=== PATIENT | female | born 1995 | race Caucasian/White ===

== ENCOUNTER → 2018-02-01 14:42 | Outpatient (CLI) | payer OTHER, SELFPAY ==
[2018-02-01 16:00] LABS: Hematocrit 29.8 % (36-46); Hemoglobin 10.1 g/dL (12.0-16.0)
[2018-02-01 16:29] LABS: GTT (PREG) 1 Hour PP 50gm Dose 136 mg/dL (76-139)
== END ==
PROVIDERS: PCP Family Medicine; Visit Provider Family Medicine
DX: Z3A.26 26 weeks gestation of pregnancy (principal)
CPT/HCPCS: 36415; 82950; 85014; 85018

== ENCOUNTER 2018-02-03 21:25 | Emergency (ER) | payer OTHER, MEDICAID, SELFPAY ==
[2018-02-03 21:27] VITALS: BP 109/67; PULSE 101; RESP 18; TEMP 36.3; O2SAT 99; BMI 25.6
[2018-02-03] MEDS: SODIUM CHLORIDE 0.9% 1,000 ML 1000 ML IV (22:42)
[2018-02-03] MEDS: METOCLOPRAMIDE 10 MG/2 ML INJ IV (22:42)
[2018-02-03 23:57] VITALS: BP 104/65; PULSE 98; RESP 18; TEMP 36.7; O2SAT 98
--- NOTE | 2018-02-04 00:46 | ED_ITS ---
HPI - Headache General Chief Complaint: Headache Stated Complaint: BAD HEADACHE LOW IRON Time Seen by Provider: 02/03/18 21:42 Source: patient Mode of arrival: ambulatory Limitations: no limitations History of Present Illness HPI Narrative: 22-year-old female with history of migraines, at 22 weeks presents with a chief complaint of gradually worsening frontal headache over the past day or 2. she states that is presenting in a fashion consistent with prior migraines. She denies any visual disturbance. She admits to worsening symptoms with bright lights, loud noise and physical exertion. She denies any fever or chills. She denies any recent injury. She has no history of preeclampsia or other related problems MD Complaint: headache Onset (ago): day(s) Onset description: gradual Location: left and frontal Severity: moderate Quality: aching and similar to previous headaches Relieving factors: nothing Exacerbating factors: light and rest Context: occurred at rest Associated symptoms: nausea Related Data Previous Rx's Medication Instructions Recorded ferrous sulfate 325 mg (65 mg 325 mg PO DAILY #90 tab 01/23/18 iron) tablet 1 tab PO DAILY #90 tab 01/23/18 vitamin,calcium,sxnmmfzc-kznq-jgqqd acid tablet sertraline 100 mg tablet 100 mg PO DAILY #30 tab 01/23/18 Allergies Allergy/AdvReac Type Severity Reaction Status Date / Time diphenhydramine Allergy Severe shortness Verified 01/23/18 10:34 [From Benadryl] of breath Penicillins AdvReac Mild hives Verified 01/23/18 10:34 Review of Systems Review of Systems All systems reviewed & are unremarkable except as noted in HPI and below Constitutional Denies chills, Denies fever(s), Reports headache(s), Denies lethargy and Denies weakness Eyes Denies change in vision, Denies eye discharge, Denies irritation and Denies loss of vision ENT Ears, Nose, Mouth, and Throat: Denies change in voice, Reports headache(s), Denies neck pain and Denies sore throat Cardiovascular Denies chest pain, Denies irregular heart rhythm, Denies lightheadedness, Denies palpitations, Denies dyspnea, Denies dyspnea on exertion and Denies orthopnea Respiratory Denies cough, Denies dyspnea, Denies dyspnea on exertion and Denies wheezing Gastrointestinal Gastrointestinal: Denies abdominal pain, Denies change in bowel habits, Denies diarrhea, Denies nausea and Denies vomiting Genitourinary Denies hematuria, Denies flank pain, Denies urinary incontinence and Denies urinary urgency Musculoskeletal Denies neck pain Integumentary/Breasts Denies pruritus, Denies erythema, Denies rash and Denies wounds Neurologic Denies confusion, Reports headache(s), Denies loss of vision and Denies weakness Psychiatric Denies anxiety, Denies confusion, Denies depression, Denies homicidal ideation and Denies suicidal ideation Endocrine Denies palpitations Hematologic/Lymphatic Denies easy bruising Allergic/Immunologic Denies wheezing [facility] Medical History Anxiety and depression (Chronic) Migraines (Chronic) Traumatic brain injury (Resolved) Surgical History H/O sinus surgery (Resolved) S/P tonsillectomy (Resolved) Social History marital status: number of children: 1 household members: family lives independently: Yes education level: college occupational status: unemployed () Smoking Status: Never smoker alcohol intake: current () substance use type: does not use Exam Narrative Exam Narrative: GENERAL: This is a well-nourished, well-developed patient, in mild distress. HEAD: Atraumatic. Normocephalic. No temporal or scalp tenderness. EYES: Pupils equal round and reactive. Extraocular motions intact. No scleral icterus. No injection or drainage. ENT: Nose without bleeding, purulent drainage or septal hematoma. Throat without erythema, tonsillar hypertrophy or exudate. Uvula midline. Airway patent. NECK: Trachea midline. No JVD or lymphadenopathy. Supple, nontender, no meningeal signs. CARDIOVASCULAR: Regular rate and rhythm without murmurs, gallops, or rubs. RESPIRATORY: Clear to auscultation. Breath sounds equal bilaterally. No wheezes , rales, or rhonchi. GASTROINTESTINAL: Abdomen soft, gravid above umbilicus non-tender, nondistended. No hepato-splenomegaly, or palpable masses. No guarding. EXTREMITIES: No clubbing, cyanosis, or edema. No joint tenderness, effusion, or edema noted. BACK: Nontender without deformity or crepitance. No flank tenderness. NEURO: AOx3. SKIN: No rash or erythema. Initial Vital Signs Initial Vital Signs: Vital Signs Temperature 97.4 F L 02/03/18 21:27 Pulse Rate 101 H 02/03/18 21:27 Respiratory Rate 18 02/03/18 21:27 Blood Pressure 109/67 02/03/18 21:27 Pulse Oximetry 99 02/03/18 21:27 Course Orders Ordered: Discontinued Medications Sodium Chloride (Normal Saline 0.9%) 1,000 mls @ 1,000 mls/hr IV BOLUS ONE Stop: 02/03/18 23:26 Last Infusion: 02/03/18 23:55 Dose: 0 mls/hr Admin: 02/03/18 22:42 Dose: 1,000 mls/hr Metoclopramide HCl (Reglan) 10 mg IV NOW ONE Stop: 02/03/18 22:28 Last Admin: 02/03/18 22:42 Dose: 10 mg Reevaluation(s) Reevaluation #1: near complete resolution of symptoms upon completion of above stated therapies Vital Signs - 8 hr 02/03/18 21:27 02/03/18 23:57 Temperature 97.4 F L 98.1 F Pulse Rate 101 H 98 H Respiratory Rate 18 18 Blood Pressure 109/67 104/65 Pulse Oximetry 99 98 MDM - Headache Lab Data Urine Dip Bedside Urine Glucose Negative Bedside Urine Bilirubin - Negative Bedside Urine Ketone - Negative Urine Specific [place] 1.015 Bedside Urine Occult Blood - Negative Bedside Urine pH 7.5 Bedside Urine Protein - Negative Bedside Urine Urobilinogen - Negative Bedside Urine Nitrite - Negative Bedside Urine Leukocytes - Negative Esterase MDM Narrative Medical decision making narrative: Diagnoses including migraine, SAH, preeclampsia considered subarachnoid hemorrhage is less likely given gradual presentation of symptoms lack of vomiting lack of other focal neurologic findings and response to the above-stated therapies. preeclampsia ruled with lack of hypertension and or proteinuria migraine thought most likely given comparison to prior episodes of migraine, physical exam findings, resolution of symptoms with migraine abortive med therapy Discharge Plan Departure Patient Disposition: Home Clinical Impression: Migraine Discharge Date/Time: 02/03/18 23:58 Interventions: ED Discharge Assessment Last Done: 02/03/18 23:57 Instructions: Migraine -- Adult Activity Restrictions/Additional Instructions: *You have been diagnosed with [ acute migraine ] *What to do: *Continue to take medications as directed *Follow up with your primary care provider in 2-3 days, call for an appointment. Let them know you were seen in the Emergency Department and that we ask that you be seen in follow up *Return to ER if you should have any new, worsening or concerning symptoms Prescriptions: No Action prenat.vits,kate,bwr-yzgn-edort [ Vitamin] tablet 1 tab PO DAILY Qty: 90 RF: 0 ferrous sulfate [FeroSul] 325 mg (65 mg iron) tablet 325 mg PO DAILY Qty: 90 RF: 0 sertraline 100 mg tablet 100 mg PO DAILY Qty: 30 RF: 1
== END 2018-02-03 23:58 | disposition home or self-care (01) ==
PROVIDERS: Emergency Provider Emergency Medicine; PCP Family Medicine
DX: G43.909 Migraine, unspecified, not intractable, without status migrainosus (principal)
CPT/HCPCS: 36591; 81003; 96361; 96374; 99283; 99284; J2765

== ENCOUNTER → 2018-02-23 13:58 | Outpatient (CLI) | payer OTHER, MEDICAID, SELFPAY ==
--- NOTE | 2018-02-23 | DI.US.S_ITS ---
PROCEDURE: US OB LIMITED INDICATIONS: CONTRACTIONS, CERVICAL LENGTH OUTSIDE/PRIOR DATING DATA: Last menstrual period (LMP): Not available. LMP-based estimated date of delivery (ANGEL LUIS): Not available. First dating scan (date and location): This study, 02/23/18. Estimated date of delivery (ANGEL LUIS) from first dating scan: Not available. TECHNIQUE: Real-time scanning was performed of the fetus, with image documentation. Endovaginal scanning: Not necessary for this study COMPARISON: None. FINDINGS: A single living intrauterine gestation is present. Presentation: Breech Placenta: Placental position is anterior, without previa. Amniotic fluid index: 17.1 cm, normal range is 5-24 cm. heart rate: 140 beats per minute. Maternal cervical canal: 3.8 cm long. Normal lower limit is 2.5 cm. Estimated gestational age from initial scan: 30 weeks 3 days. IMPRESSION: Limited study requested, targeted to cervical length. Current cervical length is 3.8 cm, normal. Breech presentation at this time. Dictated by: Ty Teague M.D. on 02/23/2018 at 16:21 Approved by: Ty Teague M.D. on 02/23/2018 at 16:22
[2018-02-23 14:55] LABS: Add Manual Diff / Slide Review NO; Basophils Percent Auto 0.5 % (0-2); Eosinophils Percent Auto 1.2 % (2-4); Hematocrit 33.7 % (36-46); Hemoglobin 11.2 g/dL (12.0-16.0); Lymphocytes Percent Auto 19.8 % (25-40); Mean Corpuscular HGB Conc 33.4 % (30-36); Mean Corpuscular Hemoglobin 28.8 PG (26-34); Mean Corpuscular Volume 86.4 fL (80-100); Monocytes Percent Auto 6.7 % (3-14); Neutrophils Absolute Auto 6900 /uL (3000-5900); Neutrophils Percent Auto 71.8 % (50-75); Platelet Count 136 X10^3/uL (150-400); Red Cell Distribution Width 19.5 % (11.6-14.8); White Blood Cell Count 9.7 X10^3/uL (4.5-11.0)
[2018-02-23 15:04] LABS: Bacteria Urine None Seen; RBC Urine None Seen (0-5/HPF); WBC Urine None Seen (0-5/HPF)
[2018-02-23 15:05] LABS: Appearance Urine UA CLEAR; Bilirubin Urine UA NEGATIVE (NEGATIVE); Color Urine UA YELLOW; Glucose Urine UA NEGATIVE (Normal); Ketones Urine UA TRACE (NEGATIVE); Leukocyte Esterase Urine UA NEGATIVE (NEGATIVE); Nitrite Urine UA NEGATIVE (Negative); Occult Blood Urine UA NEGATIVE (Negative); Protein Urine UA TRACE (Negative); Urobilinogen Urine UA 0.2 E.U./dL (0.2)
--- NOTE | 2018-02-23 15:39 | PM.OBTRLD ---
Visit Information Visit Information Date of evaluation: 02/23/18 Primary OB Provider: Yenifer Mejia Reason for Evaluation: Yes pre-term labor PFSH Medical History Anxiety and depression (Chronic) Migraines (Chronic) Traumatic brain injury (Resolved) Surgical History H/O sinus surgery (Resolved) S/P tonsillectomy (Resolved) Social History marital status: number of children: 1 household members: family lives independently: Yes education level: college occupational status: unemployed () Smoking Status: Never smoker alcohol intake: current () substance use type: does not use Objective Labs Result Diagrams: 02/23/18 14:48 Labs: Laboratory Results - last 24 hr 02/23/18 02/23/18 14:48 14:50 WBC 9.7 RBC 3.90 L Hgb 11.2 L Hct 33.7 L MCV 86.4 MCH 28.8 MCHC 33.4 RDW 19.5 H Plt Count 136 L Neut % (Auto) 71.8 Lymph % (Auto) 19.[address] [place] % (Auto) 6.7 Eos % (Auto) 1.2 L Baso % (Auto) 0.5 Neut # (Auto) 6900 H Urine Color Yellow Urine Appearance Clear Urine pH 6.0 Ur Specific [place] 1.020 Urine Protein Trace H Urine Glucose (UA) Negative Urine Ketones Trace H Urine Occult Blood Negative Urine Nitrate Negative Urine Bilirubin Negative Urine Urobilinogen 0.2 Ur Leukocyte Esterase Negative Urine RBC None seen Urine WBC None seen Urine Bacteria None seen Ur Culture Indicated? Not Reportable Micro UA Comment Not Reportable Evaluation Evaluation Baseline heart rate: 130 Variability: Moderate (11-25) monitor accelerations: Present monitor decelerations: Absent Contraction Frequency (minutes): 0 Category of Tracing: I Laboratory results: Laboratory Tests 02/23/18 02/23/18 14:48 14:50 WBC 9.7 RBC 3.90 L Hgb 11.2 L Hct 33.7 L MCV 86.4 MCH 28.8 MCHC 33.4 RDW 19.5 H Plt Count 136 L Neut % (Auto) 71.8 Lymph % (Auto) 19.[address] [place] % (Auto) 6.7 Eos % (Auto) 1.2 L Baso % (Auto) 0.5 Neut # (Auto) 6900 H Urine Color Yellow Urine Appearance Clear Urine pH 6.0 Ur Specific [place] 1.020 Urine Protein Trace H Urine Glucose (UA) Negative Urine Ketones Trace H Urine Occult Blood Negative Urine Nitrate Negative Urine Bilirubin Negative Urine Urobilinogen 0.2 Ur Leukocyte Esterase Negative Urine RBC None seen Urine WBC None seen Urine Bacteria None seen Ur Culture Indicated? Not Reportable Micro UA Comment Not Reportable Diagnosis, Plan/Disposition Final Diagnosis (1) 30 weeks gestation of : Current Visit: Yes Status: Acute Plan/Disposition Plan: Patient came into the center today concerned about contractions and possible leaking of fluid. On the monitor patient was not sindhu. heart tones were reassuring. AmniSure was negative. Urine dip was negative for infection. Ultrasound done for cervical length revealed a cervix greater than 3 cm in length. Patient was reassured with this information. She will follow up next week in clinic as scheduled.
== END | disposition home or self-care (01) ==
LOC: LABOR 16:44 → OB 02-27 08:00
PROVIDERS: PCP Family Medicine
DX: Z34.83 Encounter for supervision of other normal pregnancy, third trimester (principal); Z3A.30 30 weeks gestation of pregnancy
CPT/HCPCS: 36415; 59025; 59050; 76811; 76815; 76817; 76830; 81001; 84112; 85025; G0378; G0379

== ENCOUNTER → 2018-03-14 11:50 | Outpatient (CLI) | payer OTHER, MEDICAID, SELFPAY ==
[2018-03-14 13:32] LABS: Urine N gonorrhoeae NOT DETECTED
[2018-03-14 13:38] LABS: Urine Chlamydia NOT DETECTED
== END ==
PROVIDERS: PCP Family Medicine; Visit Provider Family Medicine
DX: Z11.3 Encounter for screening for infections with a predominantly sexual mode of transmission (principal); Z11.8 Encounter for screening for other infectious and parasitic diseases; Z3A.33 33 weeks gestation of pregnancy; N89.9 Noninflammatory disorder of vagina, unspecified; O26.899 Other specified pregnancy related conditions, unspecified trimester
CPT/HCPCS: 87210; 87491; 87591

== ENCOUNTER → 2018-04-04 11:40 | Outpatient (CLI) | payer OTHER, MEDICAID, SELFPAY ==
[2018-04-05 15:04] LABS: Strep Grp B PCR NEG for Grp B Strep
== END ==
PROVIDERS: PCP Family Medicine; Visit Provider Family Medicine
DX: Z3A.36 36 weeks gestation of pregnancy (principal)
CPT/HCPCS: 87653

== ENCOUNTER 2018-04-28 00:14 | Outpatient (CLI) | payer OTHER, MEDICAID, SELFPAY ==
--- NOTE | 2018-04-28 10:19 | PM.OBTRLD ---
Visit Information Visit Information Date of evaluation: 04/28/18 Primary OB Provider: Yenifer Mejia On-call OB Provider: Bre Walden Reason for Evaluation: Yes rule out labor Vital Signs Vital Signs: Blood pressure 109/61 PFSH Social History marital status: number of children: 1 household members: family lives independently: Yes education level: college occupational status: unemployed () Smoking Status: Never smoker alcohol intake: current () substance use type: does not use Evaluation Evaluation Baseline heart rate: 130 Variability: Moderate (11-25) monitor accelerations: Present monitor decelerations: Absent Contraction Frequency (minutes): 7 Uterine Contraction Intensity: Moderate Category of Tracing: I Cervical dilation (cm): 2 Cervical effacement (%): 80 station: -1 Diagnosis, Plan/Disposition Final Diagnosis (1) 39 weeks gestation of : Current Visit: No Status: Acute (2) Premature uterine contractions, antepartum: Current Visit: No Status: Acute Plan/Disposition Plan: Patient in prodromal labor. She was discharged home to return if her contractions increase.
== END 2018-04-28 01:05 | disposition home or self-care (01) ==
LOC: LABOR 00:22 → OB 05-02 13:12
PROVIDERS: PCP Family Medicine; Visit Provider Specialist
DX: Z34.83 Encounter for supervision of other normal pregnancy, third trimester (principal); Z3A.39 39 weeks gestation of pregnancy
CPT/HCPCS: 59025; G0378; G0379

== ENCOUNTER 2018-04-30 05:07 | Outpatient (CLI) | payer OTHER, MEDICAID, SELFPAY ==
[2018-04-30] MEDS: OXYCODONE/ACETAMINOPHEN 5/325 TABLET 2 TAB PO (06:21)
[2018-04-30] MEDS: ONDANSETRON 4 MG ODT PO (06:21)
--- NOTE | 2018-04-30 10:27 | PM.OBTRLD ---
Visit Information Visit Information Date of evaluation: 04/30/18 Primary OB Provider: Yenifer Mejia On-call OB Provider: Bre Walden Reason for Evaluation: Yes rule out labor Vital Signs Vital Signs: Blood pressure 115/69, pulse of 86 PFSH Social History marital status: number of children: 1 household members: family lives independently: Yes education level: college occupational status: unemployed () Smoking Status: Never smoker alcohol intake: current () substance use type: does not use Review of Systems Review of Systems Patient complaining contractions, back pain, and nausea. no signs or symptoms of preeclampsia All systems reviewed & are unremarkable except as noted in HPI and below Evaluation Evaluation Baseline heart rate: 130 Variability: Moderate (11-25) monitor accelerations: Present monitor decelerations: Absent Contraction Frequency (minutes): 7 Uterine Contraction Intensity: Mild Category of Tracing: I Cervical dilation (cm): 2 Cervical effacement (%): 80 Diagnosis, Plan/Disposition Final Diagnosis (1) Premature uterine contractions, antepartum: Current Visit: No Status: Acute (2) 39 weeks gestation of : Current Visit: No Status: Acute Plan/Disposition Plan: Patient with no change in her cervix with very uncomfortable. Patient given Zofran and Percocet. Home to return if contractions increase
== END 2018-04-30 06:39 | disposition home or self-care (01) ==
LOC: OB 05-02 13:13
PROVIDERS: PCP Family Medicine; Visit Provider Specialist
DX: O47.1 False labor at or after 37 completed weeks of gestation (principal); Z3A.39 39 weeks gestation of pregnancy
CPT/HCPCS: 59025; G0378; G0379

== ENCOUNTER 2018-05-04 18:29 | Inpatient (IN) | payer OTHER, MEDICAID, SELFPAY ==
[2018-05-04 22:18] LABS: Add Manual Diff / Slide Review NO; Basophils Percent Auto 0.4 % (0-2); Eosinophils Percent Auto 0.8 % (2-4); Hematocrit 38.8 % (36-46); Hemoglobin 12.8 g/dL (12.0-16.0); Lymphocytes Percent Auto 20.2 % (25-40); Mean Corpuscular HGB Conc 33.1 % (30-36); Mean Corpuscular Hemoglobin 29.6 PG (26-34); Mean Corpuscular Volume 89.5 fL (80-100); Monocytes Percent Auto 8.1 % (3-14); Neutrophils Absolute Auto 8600 /uL (1500-7000); Neutrophils Percent Auto 70.5 % (50-75); Platelet Count 138 X10^3/uL (150-400); Red Blood Cell Count 4.34 X10^6/uL (4.0-5.2); Red Cell Distribution Width 16.1 % (11.6-14.8); White Blood Cell Count 12.2 X10^3/uL (4.5-11.0)
[2018-05-05] MEDS: LACTATED RINGERS 1,000 ML 100 ML IV ×2 (01:25→06:18)
[2018-05-05 01:39] VITALS: BP 114/62
[2018-05-05] MEDS: ONDANSETRON 4 MG/2 ML INJ IV (05:58)
--- NOTE | 2018-05-05 07:20 | P.HPOB_ITS ---
OB HPI Date/Time Date of admission: 05/04/18 Date Patient Seen: 05/05/18 Time Patient Seen: 07:40 History of Present Condition Chief complaint: Observation : 2 Para: 1 Estimated Date of Delivery: 05/01/18 Estimated Gestational Age (weeks): 40w4d Narrative: Ciara Best is a 22 year old at 40w4d weeks. Transfer of care at 26 weeks from [place]. Moved to get away from her , is currently going through a divorce. Lives in [place] with her mother and son. LMP 07/25/17, ANGEL LUIS 05/01/18 confirmed by 1st trimester US 10/06/17 at 10.3 weeks. US 12/14/17 at 20.2 weeks with normal anatomy, anterior placenta with marginal cord insertion. History of Present care: good care and pounds weight gain (24 lbs) Dating criteria: LMP confirmed by 1st trimester US Ultrasounds: normal mid trimester US Obstetrical complications: none Medical complications: none and psychiatric (Anxiety) Preadmission Labs Blood type: O (+) positive -: Antibody screen: negative, GBS status: negative, HBsAG: negative and RPR/VDLR : negative -: Chlamydia screen: not detected and Gonorrhea screen: not detected -: Rubella: not immune and Varicella: unknown (had chicken pox as a child) HCT: 31.4 Urine: Negative 1 hr GTT: 136 Prior (ies) History: August 2016 at 39+2 weeks, epidural, 6 lb male Evaluation Evaluation Baseline heart rate: 120 Variability: Moderate (11-25) monitor accelerations: Present monitor decelerations: Variable Contraction Frequency (minutes): 3 Category of Tracing: I Cervical dilation (cm): 5 Cervical effacement (%): 80 station: -1 Laboratory results: Laboratory Tests 05/04/18 05/04/18 21:45 21:45 WBC 12.2 H RBC 4.34 Hgb 12.8 Hct 38.8 MCV 89.5 MCH 29.6 MCHC 33.1 RDW 16.1 H Plt Count 138 L Neut % (Auto) 70.5 Lymph % (Auto) 20.2 L [place] % (Auto) 8.1 Eos % (Auto) 0.8 L Baso % (Auto) 0.4 Neut # (Auto) 8600 H Blood Type O Positive Antibody Screen Negative Comments: AROM with meconium PFS Medical History Anxiety and depression (Chronic) Migraines (Chronic) Traumatic brain injury (Resolved) Surgical History H/O sinus surgery (Resolved) S/P tonsillectomy (Resolved) Social History marital status: number of children: 1 household members: family lives independently: Yes education level: college occupational status: unemployed () Smoking Status: Never smoker alcohol intake: current () substance use type: does not use Meds Home Medications Medication Instructions Recorded Confirmed Type ferrous sulfate 325 mg (65 mg 325 mg PO DAILY #90 tab 01/23/18 04/30/18 Rx iron) tablet 1 tab PO DAILY #90 tab 01/23/18 04/30/18 Rx vitamin,calcium,jvfbjtxu-otmp-ckztz acid tablet sertraline 100 mg tablet 100 mg PO DAILY #30 tab 01/23/18 04/30/18 Rx lshjenzmtk-jdtedwxbabumm-zkioqlje 1 cap PO Q4-6H PRN #10 cap 02/09/18 04/30/18 Rx 50 mg-300 mg-40 mg capsule Allergies Allergy/AdvReac Type Severity Reaction Status Date / Time diphenhydramine Allergy Severe shortness Verified 04/28/18 01:11 [From Benadryl] of breath Penicillins AdvReac Mild hives Verified 04/28/18 01:11 Review of Systems Constitutional Constitutional: Denies fever(s) and Denies headache(s) ENT Ears, Nose, Mouth, and Throat: No headache(s) Respiratory Respiratory: Denies cough Gastrointestinal Gastrointestinal: Reports nausea and Denies vomiting Neurologic Neurologic: Denies headache(s) Exam Vital Signs (past 8 hours): - 05/05/18 01:39 Blood Pressure 114/62 Const General: comfortable HENMT Head: normal to inspection Ears: hearing grossly normal bilaterally Nose: external nose normal Mouth: oral mucosae normal Eyes General: appearance normal, both eyes and all related structures Neck Neck: normal visual inspection Resp Effort & Inspection: normal respiratory effort Auscultation: clear to auscultation bilaterally Cardio Rate: regular rate Rhythm: regular rhythm Heart Sounds: S1 normal and S2 normal GI Other: Gravid External Female Exam: external appearance normal Manual OB Exam: dilated 5, effaced 75% and station -1 Uterus Location (Fundal Height): 38 Presentation: vertex Estimated Weight (lbs): 7 Amniotic Fluid: meconium Skin General: no rashes or lesions noted Neuro General: alert, awake and oriented x3 Extrem General: no pedal edema Objective Labs Result Diagrams: 05/04/18 21:45 Labs: Laboratory Results - last 24 hr 05/04/18 05/04/18 21:45 21:45 WBC 12.2 H RBC 4.34 Hgb 12.8 Hct 38.8 MCV 89.5 MCH 29.6 MCHC 33.1 RDW 16.1 H Plt Count 138 L Neut % (Auto) 70.5 Lymph % (Auto) 20.2 L [place] % (Auto) 8.1 Eos % (Auto) 0.8 L Baso % (Auto) 0.4 Neut # (Auto) 8600 H Blood Type O Positive Antibody Screen Negative Assessment and Plan (1) 40 weeks gestation of : Current visit: Yes Status: Acute 22 year old at 40 weeks and 4 days gestation. GBS negative. Patient presented to the center last night with regular contractions and went from 3 to 4 cm so was admitted. She has had a long and painful latent labor over the last week. Overnight patient made slow cervical change to 4.5 cm with SROM at 2:45 AM with clear fluid. Pitocin was started at 6 AM for augmentation. Now /-1 with meconium after AROM. Patient is in the process of going through a divorce and has been staying with her mother in [facility] this . Unfortunately she loses her insurance at the end of 2018. Plan - Comfortable with epidural - Expectant management, anticipate vaginal delivery - Will ask social work to come see her regarding loss of insurance this week
--- NOTE | 2018-05-05 09:35 | P.PCNOB_ITS ---
Delivery date: 05/05/18 Intrapartal events: Prolonged Latent Phase Delivery augmentation: rupture of membranes and pitocin Delivery monitor: external FHT Route of delivery: Laceration description: Labial (first degree right) Delivery repair: vicryl Estimated blood loss (mL): 250 Anesthesia type: Epidural Narrative: VAGINAL DELIVERY NOTE Date 05/05/18 BRIEF HISTORY: Patient is a 22-year-old at 40 weeks and 4 days gestation who gave on 05/05/18 at 9:13 a.m. ANGEL LUIS: 05/01/18 Hospital problems: 40 weeks Epidural analgesia STAGE I: Labor Labor onset: 4:30 p.m. on 04/26/18 Augmentation: AROM and Pitocin Spontaneous rupture of membranes occurred at 2:45 a.m. on 05/05/18 with clear fluid. Artificial rupture of membranes occurred at 7:43 a.m. with thick meconium. Stage I duration: 16.5 hours Pain control with epidural. Comments: heart tones were category 1 throughout stage I until artificial rupture of membranes with subsequent variable deceleration is a. heart tones were category 2 throughout the remainder of stage I. STAGE II: Delivery The second stage of labor lasted 13 minutes. Spontaneous vaginal delivery occurred at 9:13 a.m. on 05/05/18. Presentation was vertex and CHARITY with a hand near the face. There was a nuchal cord delivery which was reduced. A vigorous male baby was born. Infant was dried and stimulated. No further resuscitation required. scores were 8 at one minute and 9 at five minutes. STAGE III: Placenta/Cord The third stage of labor lasted 5 minutes. Placental delivered after active management and appeared intact with a three- vessel cord. A right first-degree labial laceration was repaired with 4 O Vicryl in 3 interrupted sutures. Complications: None EBL: 250 mL. Needle and sponge counts were correct. The vagina was inspected and no items were left in situ. Baby 1: gender: Male Presentation: vertex position: Right Occiput Anterior (with hand near face) Placenta delivery description: Spontaneous cord vessel description: Nuchal Cord (x1)
[2018-05-05] MEDS: ACETAMINOPHEN 325 MG TABLET 650 MG PO (18:27)
[2018-05-06] MEDS: IBUPROFEN 600 MG TABLET PO ×2 (05:55→13:16)
--- NOTE | 2018-05-06 09:20 | PM.OBDS.1 ---
Discharge Providers Date of admission: 05/04/18 18:29 Primary care physician: Yenifer Mejia DO Consults: 05/05/18 08:01 Consult to Interface Designer Routine Comment: losing insurance, please provide resources 05/05/18 12:05 Consult to Welding Production Supervisor Routine Comment: Discharge provider: Yenifer Mejia DO Discharge Date: 05/06/18 Summary Date Patient Seen: 05/06/18 Time Patient Seen: 09:00 Hospital Course: Patient is a 22 year old [id number] s/p on 05/05/18 of a healthy male infant. She progressed quickly after pitocin and AROM following a prolonged latent labor. Received epidural for analgesia. course was uncomplicated. was going well at the time of discharge. Bleeding was light. Pain controlled with ibuprofen. Patient was ambulating, eating, voiding and passing flatus. Counseled patient to call for fevers, severe pain or bleeding through more than a pad an hour. She will follow up with Dr. Mejia in six weeks. Exam Temp 99.2 BP 107/57 HR 78 General: Well-appearing, NAD CV: RRR, no murmur Lungs: CTAB Abdomen: Bowel tones active x4, soft, NT/ND, fundus firm 2 finger widths below umbilicus Extremities: Warm, no edema Peripartum Data Infant Delivery Method: Natural Vaginal Laceration description: Labial (right, first degree) complications: none 1: Gender: Male Disposition of : home Discharge Diagnosis (1) 40 weeks gestation of : Status: Acute (2) (spontaneous vaginal delivery): Status: Acute Status at Discharge Functional status at discharge: independent ambulation Overall status at discharge: patient is back to baseline Time Spent with Patient Total time spent providing and/or coordinating discharge services: Less than 30 minutes Objective Labs Result Diagrams: 05/04/18 21:45 Discharge Plan Discharge Plan Patient Disposition: Home Discharge Med Rec/Prescriptions Prescriptions: New docusate sodium 250 mg Capsule 250 mg PO DAILY Qty: 30 RF: 0 Continue pniwboywwu-mdqvcoejvfvwh-agvw [Fioricet] 50-300-40 mg capsule 1 cap PO Q4-6H PRN (Reason: headache) Qty: 10 RF: 0 prenat.vits,kate,cem-gctm-doojy [ Vitamin] tablet 1 tab PO DAILY Qty: 90 RF: 0 ferrous sulfate [FeroSul] 325 mg (65 mg iron) tablet 325 mg PO DAILY Qty: 90 RF: 0 sertraline 100 mg tablet 100 mg PO DAILY Qty: 30 RF: 1 Follow up/Referrals: Yenifer Mejia DO [Primary Care Provider] - 6 Weeks (Please Call Dr. Mejia's office on Monday for appointment [phone]) Visit Report/Discharge Packet Instructions: DI for Heart Failure Stand Alone Forms: Discharge: Care Visit Report Forms: Congestive Heart Failure, Stroke Signs & Symptoms Discharge Data Primary Care Provider: Yenifer Mejia Attending Provider: Kevin Wagner Admit Date/Time: 05/04/18 18:29
[2018-05-06] MEDS: SERTRALINE 50 MG TABLET 100 MG PO (11:32)
[2018-05-06] MEDS: FERROUS SULFATE 325 MG TABLET PO (11:32)
[2018-05-06] MEDS: DOCUSATE 250 MG CAPSULE PO (11:33)
[2018-05-06] MEDS: PRENATAL VIT,CALC/IRON/FOLIC 1 TABLET 1 TAB PO (11:33)
[2018-05-06 13:26] VITALS: BP 94/55; PULSE 73; RESP 16; TEMP 36.8
[2018-05-06] MEDS: MEASLES,MUMPS,RUBELLA VACC/PF 0.5 ML VIAL SUBCUT (14:00)
== END 2018-05-06 14:20 | disposition home or self-care (01) | DRG 807 ==
PROVIDERS: PCP Family Medicine
DX: O99.344 Other mental disorders complicating childbirth (principal); Z37.0 Single live birth; F41.9 Anxiety disorder, unspecified; Z3A.40 40 weeks gestation of pregnancy; O77.0 Labor and delivery complicated by meconium in amniotic fluid; O32.6XX0 Maternal care for compound presentation, not applicable or unspecified; O69.1XX0 Labor and delivery complicated by cord around neck, with compression, not applicable or unspecified; O70.0 First degree perineal laceration during delivery
CPT/HCPCS: 01967; 59050; 59410; 85025; 86850; 86900; 86901; G0379; J2405; J3010

== ENCOUNTER 2018-05-07 10:08 | Emergency (ER) | payer OTHER, MEDICAID, SELFPAY ==
[2018-05-07] VITALS (8 sets, daily range): BP systolic 92–104; BP diastolic 50–64; PULSE 77–131; RESP 16–21; TEMP 36.9–38.3; O2SAT 97–100
[2018-05-07 11:05] LABS: Influenza A and B by PCR Rapid Negative (Negative)
--- NOTE | 2018-05-07 11:24 | ED_ITS ---
HPI - Headache General Chief Complaint: Headache Stated Complaint: MIGRAINE POST DELIVERY Time Seen by Provider: 05/07/18 11:02 Source: patient and family Mode of arrival: ambulatory Limitations: no limitations History of Present Illness HPI Narrative: This is a 22-year-old female comes to the emergency department 2 days with headache, fever, nasal congestion. Patient states that she has been feeling chilled and feverish on and off. Patient states that she has been having a headache, it sort of in the low neck but sometimes comes further up into the head. Patient states that it seems to sometimes be related to lying flat improving it versus sitting up and feeling better. Patient had some nasal congestion. Very mild cough. No chest pain or shortness of breath. She denies any major abdominal pain. She has had some mild cramping. Patient states that she has continued to have some vaginal bleeding post vaginal delivery. She states she did have any other complications. She did have an epidural it took 3 attempts before was successful. She has not noticed any new rashes or skin changes. Patient states that she has been having some urinary incontinence our has very mild urge and then urine comes out. She denies any other medical problems. She has been and states she has not been having much issues. She has been eating and drinking regularly. Related Data Previous Rx's Medication Instructions Recorded ferrous sulfate 325 mg (65 mg 325 mg PO DAILY #90 tab 01/23/18 iron) tablet 1 tab PO DAILY #90 tab 01/23/18 vitamin,calcium,vvyxfitc-fibt-zylci acid tablet sertraline 100 mg tablet 100 mg PO DAILY #30 tab 01/23/18 qmwfvvckws-hekiqugaozaer-euywcfzi 1 cap PO Q4-6H PRN #10 cap 02/09/18 50 mg-300 mg-40 mg capsule docusate sodium 250 mg PO DAILY #30 cap 05/06/18 oxycodone 5 mg PO Q6H PRN #5 tab 05/07/18 Allergies Allergy/AdvReac Type Severity Reaction Status Date / Time diphenhydramine Allergy Severe shortness Verified 04/28/18 01:11 [From Benadryl] of breath Penicillins AdvReac Mild hives Verified 04/28/18 01:11 Review of Systems Review of Systems All systems reviewed & are unremarkable except as noted in HPI and below Constitutional Reports chills, Reports fever(s) and Reports headache(s) ENT Ears, Nose, Mouth, and Throat: Reports headache(s) Cardiovascular Denies chest pain, Denies dyspnea and Denies dyspnea on exertion Respiratory Denies chest congestion, Reports cough, Denies excessive phlegm production, Denies pain with cough, Denies dyspnea, Denies dyspnea on exertion and Denies wheezing Gastrointestinal Gastrointestinal: Denies abdominal pain, Denies change in bowel habits, Denies diarrhea, Denies nausea and Denies vomiting Genitourinary Denies urinary frequency, Denies dysuria, Reports urinary incontinence and Reports urinary urgency Musculoskeletal Reports back pain (mild at epidural site, no redness) and Denies limited range of motion Integumentary/Breasts Denies rash and Reports other (scabbing on nipples from , no breast tenderness.) Neurologic Reports headache(s) Allergic/Immunologic Denies wheezing [facility] Medical History Anxiety and depression (Chronic) Migraines (Chronic) Traumatic brain injury (Resolved) Surgical History H/O sinus surgery (Resolved) S/P tonsillectomy (Resolved) Social History marital status: number of children: 1 household members: family lives independently: Yes education level: college occupational status: unemployed () Smoking Status: Never smoker alcohol intake: current () substance use type: does not use Exam Narrative Exam Narrative: GEN: well nourished, well appearing female, alert and oriented x 3, patient appears to be in mild distress. HEENT: Atraumatic, pupils are equal round reactive to light, extraocular movements are intact, no photophobia, nares are clear, TMs are clear with no fluid, there is no conjunctival pallor. Throat is clear without any exudates, erythema, tonsillar enlargement or uvular deviation, no meningeal signs. HEART: Regular rate and rhythm without murmur, clicks, rubs. Pulses are equal in upper and lower extremities LUNGS:Lungs clear to auscultation, no wheezes, rales, crackles, chest moves symmetrically ABD:bowel sounds normal, soft, non-tender, no guarding, rebound, rigidity, no masses noted, no hepatosplenomegaly :No CVA tenderness MSCL: Non-tender, no muscle atrophy, muscles strength 5/5 upper and lower extremities, full range of motion NEURO:CN 2-12 intact, sensation normal, reflexes 2/4 upper and lower extremities. SKIN: Over low back patient has 3 puncture navarro that appear to be scabbed over and healing appropriately. There is no erythema, there is no warmth there is no tenderness to the area. This is over L4-L5 region. Patient also does not have any redness, discoloration or tenderness of the breast. Initial Vital Signs Initial Vital Signs: Vital Signs Temperature 100.9 F H 05/07/18 10:31 Pulse Rate 131 H 05/07/18 10:31 Respiratory Rate 18 05/07/18 10:31 Blood Pressure 97/63 05/07/18 10:31 Pulse Oximetry 97 05/07/18 10:31 Course Orders Ordered: Discontinued Medications Acetaminophen (Tylenol) 975 mg PO NOW ONE Stop: 05/07/18 12:45 Last Admin: 05/07/18 12:47 Dose: 975 mg Sodium Chloride (Normal Saline 0.9%) 1,000 mls @ 1,000 mls/hr IV BOLUS ONE Stop: 05/07/18 12:15 Last Infusion: 05/07/18 12:45 Dose: 0 mls/hr Admin: 05/07/18 11:41 Dose: 1,000 mls/hr Sodium Chloride (Normal Saline 0.9%) 1,000 mls @ 1,000 mls/hr IV BOLUS ONE Stop: 05/07/18 13:45 Last Infusion: 05/07/18 13:39 Dose: 0 mls/hr Admin: 05/07/18 12:48 Dose: 1,000 mls/hr Ketorolac Tromethamine (Toradol) 30 mg IV NOW ONE Stop: 05/07/18 11:19 Last Admin: 05/07/18 11:41 Dose: 30 mg Vital Signs - 8 hr 05/07/18 10:31 05/07/18 12:42 05/07/18 12:44 Temperature 100.9 F H 99.5 F 99.5 F Pulse Rate 131 H 100 H Respiratory Rate 18 16 Blood Pressure 97/63 Blood Pressure [Right Arm] 92/56 L Pulse Oximetry 97 99 05/07/18 12:47 05/07/18 13:05 05/07/18 13:39 Temperature 99.5 F 98.5 F Pulse Rate 83 Respiratory Rate 19 Blood Pressure Blood Pressure [Right Arm] 104/50 L Pulse Oximetry 05/07/18 13:41 Temperature 98.5 F Pulse Rate 77 Respiratory Rate 16 Blood Pressure Blood Pressure [Right Arm] 100/64 Pulse Oximetry 100 MDM - Headache Lab Data Attestation: I reviewed the patient's lab results. Result diagrams: 05/07/18 11:30 05/07/18 11:30 Lab Results 05/07/18 05/07/18 05/07/18 Range/Units 10:35 11:30 11:30 WBC 10.8 (4.5-11.0) X10^3/uL RBC 4.38 (4.0-5.2) X10^6/uL Hgb 13.4 (12.0-16.0) g/dL Hct 39.3 (36-46) % MCV 89.7 (80-100) fL MCH 30.7 (26-34) PG MCHC 34.2 (30-36) % RDW 16.3 H (11.6-14.8) % Plt Count 125 L (150-400) X10^3/uL Neut % (Auto) 80.2 H (50-75) % Lymph % (Auto) 11.1 L (25-40) % [place] % (Auto) 7.8 (3-14) % Eos % (Auto) 0.6 L (2-4) % Baso % (Auto) 0.3 (0-2) % Neut # (Auto) 8600 H (9951-9014) /uL Sodium (137-145) mmol/L Potassium (3.4-5.1) mmol/L Chloride (98-107) mmol/L Carbon Dioxide (22-32) mmol/L BUN (7-17) mg/dL Creatinine (0.52-1.04) mg/dL Estimated GFR (>60) mL/min BUN/Creatinine Ratio (6-22) Glucose (70-100) mg/dL Lactate (0.7-2.1) mmol/L Calcium (8.4-10.2) mg/dL Total Bilirubin (0.2-1.3) mg/dL AST (14-36) IU/L ALT (9-52) IU/L Alkaline Phosphatase (38-126) U/L Total Protein (6.3-8.2) g/dL Albumin (3.5-5.0) g/dL Globulin (1.7-4.1) g/dL Albumin/Globulin Ratio (1.0-2.8) Procalcitonin < 0.05 (<0.5) ng/mL Urine Color Urine Appearance Urine pH (4.5-8.0) Ur Specific [place] (1.000-1.035) Urine Protein (Negative) Urine Glucose (UA) (Negative) g/dL Urine Ketones (NEGATIVE) Urine Occult Blood (Negative) Urine Nitrate (Negative) Urine Bilirubin (NEGATIVE) Urine Urobilinogen (0.2) E.U./dL Ur Leukocyte Esterase (NEGATIVE) Urine RBC (0-5/HPF) Urine WBC (0-5/HPF) Ur Squamous Epith Cells Urine Bacteria (None) Ur Culture Indicated? Micro UA Comment Influenza A & B (PCR) Negative (Negative) 05/07/18 05/07/18 05/07/18 Range/Units 11:30 11:30 12:40 WBC (4.5-11.0) X10^3/uL RBC (4.0-5.2) X10^6/uL Hgb (12.0-16.0) g/dL Hct (36-46) % MCV (80-100) fL MCH (26-34) PG MCHC (30-36) % RDW (11.6-14.8) % Plt Count (150-400) X10^3/uL Neut % (Auto) (50-75) % Lymph % (Auto) (25-40) % [place] % (Auto) (3-14) % Eos % (Auto) (2-4) % Baso % (Auto) (0-2) % Neut # (Auto) (7063-6468) /uL Sodium 137 (137-145) mmol/L Potassium 3.6 (3.4-5.1) mmol/L Chloride 104 (98-107) mmol/L Carbon Dioxide 24 (22-32) mmol/L BUN 5 L (7-17) mg/dL Creatinine 0.50 L (0.52-1.04) mg/dL Estimated GFR > 60.0 (>60) mL/min BUN/Creatinine Ratio 10.0 (6-22) Glucose 70 (70-100) mg/dL Lactate 0.8 (0.7-2.1) mmol/L Calcium 8.8 (8.4-10.2) mg/dL Total Bilirubin 0.3 (0.2-1.3) mg/dL AST 27 (14-36) IU/L ALT 23 (9-52) IU/L Alkaline Phosphatase 157 H (38-126) U/L Total Protein 6.6 (6.3-8.2) g/dL Albumin 3.4 L (3.5-5.0) g/dL Globulin 3.2 (1.7-4.1) g/dL Albumin/Globulin Ratio 1.1 (1.0-2.8) Procalcitonin (<0.5) ng/mL Urine Color Yellow Urine Appearance Clear Urine pH 7.5 (4.5-8.0) Ur Specific [place] 1.010 (1.000-1.035) Urine Protein Negative (Negative) Urine Glucose (UA) Negative (Negative) g/dL Urine Ketones Negative (NEGATIVE) Urine Occult Blood 2+ H (Negative) Urine Nitrate Negative (Negative) Urine Bilirubin Negative (NEGATIVE) Urine Urobilinogen 0.2 (0.2) E.U./dL Ur Leukocyte Esterase Negative (NEGATIVE) Urine RBC 5-10/hpf H (0-5/HPF) Urine WBC None seen (0-5/HPF) Ur Squamous Epith Cells 5-10 /hpf H Urine Bacteria None seen (None) Ur Culture Indicated? Cult not indicated Micro UA Comment Not Reportable Influenza A & B (PCR) (Negative) MDM Narrative Medical decision making narrative: Patient comes with headache that is not clearly a post lumbar puncture/epidural headache but does seem suspiciously slow. She does have a fever. My suspicion for meningitis is low, the site itself does not seem infected. Patient does not have any nuchal rigidity. Um she has also had a little bit of nasal congestion. I do not other finding any other clear source is. She has not had any chest pain, no shortness of breath, she is not having any abdominal pain other than some mild cramping. She is not having any major urinary changes other than some difficulty with holding her urine immediately after. Patient's urinalysis is negative. Discussed with patient her lab work does not show any major changes. She was a little tachycardic and hypotensive she responded well to fluids. Patient is feeling much better. We discussed some options for headache/pain medication. Will plan to do Tylenol and ibuprofen alternating with a small prescription of oxycodone. She is breast-feeding and we discussed signs and symptoms to watch for baby as or can be some sedation. Plan for mom to follow up in 24-48 hours for recheck return to ER if worsening. And watchful waiting. She does not have an appointment but her infant does on Monday. She was also encouraged to return to the ER if any worsening. Discharge Plan Departure Patient Disposition: Home Clinical Impression: Headache, Fever Discharge Date/Time: 05/07/18 14:10 Interventions: ED Discharge Assessment Last Done: 05/07/18 14:10 Activity Restrictions/Additional Instructions: Follow-up in the next 24-48 hours for recheck. You may continue ibuprofen 600 mg every 6 hr, you may also take Tylenol 1000 mg every 8 hr. You may take these both together or staggered. You may take oxycodone for breakthrough pain 1 tablet every 6 hr as needed. This can cause sedation for your or the , do not drive, perform hazards activities or make any major decisions while taking this medication. I do not co-sleep or nap with your . If you are sleepy and have someone watch you/baby so that if you fall asleep they can remove the Return to the emergency department for persistent fevers, severely worsening headache, persistent vomiting, new chest pain, shortness of breath, black or bloody stools, no abdominal pain, foul or purulent vaginal discharge or other new or concerning symptoms. Prescriptions: New oxycodone 5 mg tablet 5 mg PO Q6H PRN (Reason: pain) Qty: 5 RF: 0 No Action xlroeizvdv-aefmvkkqpgcan-uwzv [Fioricet] 50-300-40 mg capsule 1 cap PO Q4-6H PRN (Reason: headache) Qty: 10 RF: 0 prenat.vits,kate,wom-trki-mxnet [ Vitamin] tablet 1 tab PO DAILY Qty: 90 RF: 0 ferrous sulfate [FeroSul] 325 mg (65 mg iron) tablet 325 mg PO DAILY Qty: 90 RF: 0 sertraline 100 mg tablet 100 mg PO DAILY Qty: 30 RF: 1 docusate sodium 250 mg Capsule 250 mg PO DAILY Qty: 30 RF: 0
[2018-05-07] MEDS: KETOROLAC 60 MG/2 ML VIAL 30 MG IV (11:41)
[2018-05-07] MEDS: SODIUM CHLORIDE 0.9% 1,000 ML 1000 ML IV ×2 (11:41→12:48)
[2018-05-07 11:45] LABS: Add Manual Diff / Slide Review NO; Basophils Percent Auto 0.3 % (0-2); Eosinophils Percent Auto 0.6 % (2-4); Hematocrit 39.3 % (36-46); Hemoglobin 13.4 g/dL (12.0-16.0); Lymphocytes Percent Auto 11.1 % (25-40); Mean Corpuscular HGB Conc 34.2 % (30-36); Mean Corpuscular Hemoglobin 30.7 PG (26-34); Mean Corpuscular Volume 89.7 fL (80-100); Monocytes Percent Auto 7.8 % (3-14); Neutrophils Absolute Auto 8600 /uL (1500-7000); Neutrophils Percent Auto 80.2 % (50-75); Platelet Count 125 X10^3/uL (150-400); Red Blood Cell Count 4.38 X10^6/uL (4.0-5.2); Red Cell Distribution Width 16.3 % (11.6-14.8); White Blood Cell Count 10.8 X10^3/uL (4.5-11.0)
[2018-05-07 12:05] LABS: Lactate (Lactic Acid) 0.8 mmol/L (0.7-2.1)
[2018-05-07 12:07] LABS: Alanine Aminotransferase 23 IU/L (9-52); Albumin 3.4 g/dL (3.5-5.0); Albumin Globulin Ratio 1.1 (1.0-2.8); Alkaline Phosphatase 157 U/L (38-126); Aspartate Aminotransferase 27 IU/L (14-36); Bilirubin Total 0.3 mg/dL (0.2-1.3); Blood Urea Nitrogen 5 mg/dL (7-17); Calcium 8.8 mg/dL (8.4-10.2); Carbon Dioxide 24 mmol/L (22-32); Chloride 104 mmol/L (98-107); Estimated Glomerular Filt Rate > 60.0 mL/min (>60); Globulin 3.2 g/dL (1.7-4.1); Glucose 70 mg/dL (70-100); HEMOLYSIS < 15 (0-50); Potassium 3.6 mmol/L (3.4-5.1); Sodium 137 mmol/L (137-145); Total Protein 6.6 g/dL (6.3-8.2)
[2018-05-07 12:41] LABS: Procalcitonin < 0.05 ng/mL (<0.5)
[2018-05-07 12:45] LABS: Bacteria Urine None Seen; WBC Urine None Seen (0-5/HPF)
[2018-05-07 12:47] LABS: Appearance Urine UA CLEAR; Bilirubin Urine UA NEGATIVE (NEGATIVE); Color Urine UA YELLOW; Glucose Urine UA NEGATIVE (Negative); Ketones Urine UA NEGATIVE (NEGATIVE); Leukocyte Esterase Urine UA NEGATIVE (NEGATIVE); Nitrite Urine UA NEGATIVE (Negative); Occult Blood Urine UA 2+ (Negative); Protein Urine UA NEGATIVE (Negative); Urobilinogen Urine UA 0.2 E.U./dL (0.2); pH Urine UA 7.5 (4.5-8.0)
[2018-05-07] MEDS: ACETAMINOPHEN 325 MG TABLET 975 MG PO (12:47)
[2018-05-07 12:53] LABS: Culture Indicated Urine Cult Not Indicated; RBC Urine 5-10/HPF (0-5/HPF); Squamous Epithelial Cell Urine 5-10 /HPF
== END 2018-05-07 14:10 | disposition home or self-care (01) ==
PROVIDERS: Emergency Provider Emergency Medicine; PCP Family Medicine
DX: R51 Headache (principal); R50.9 Fever, unspecified
CPT/HCPCS: 36415; 36591; 80053; 81001; 83605; 84145; 85025; 87040; 87400; 96361; 96374; 99284; J1885

== ENCOUNTER → 2019-01-18 07:17 | Outpatient (CLI) | payer OTHER, MEDICAID, SELFPAY ==
--- NOTE | 2019-01-18 07:19 | DI.US.S_ITS ---
PROCEDURE: US PELVIC COMPLETE INDICATIONS: PAIN. LMP 1 day ago. TECHNIQUE: Real-time scanning was performed of the pelvic organs, with image documentation. Additional endovaginal scanning was necessary due to incomplete visualization of the adnexal and endometrial structures by transabdominal scanning. COMPARISON: None. FINDINGS: Transabdominal scanning: Limited scanning through the kidneys shows no hydronephrosis. No pathologic free abdominal or pelvic fluid. Endovaginal scanning: Uterus: Uterus is normal in size at 7.3 x 4.2 x 6 cm. The endometrium measures 4 mm in combined thickness. IUD centered in the uterine cavity. Ovaries: Normal Doppler. No ovarian torsion. -Right ovary measures 5.7 x 3.9 x 4.8 cm. Avascular complex right ovarian cyst measuring 4.6 x 3.4 x 4.3 cm. Cyst demonstrates homogeneous hypoechoic and isoechoic portions. -The left ovary measures 3.5 x 2.2 x 2.6 cm. IMPRESSION: 1. Normal uterus and endometrium. IUD in expected location. 2. Right ovarian hemorrhagic cyst measuring less than 5 cm. This is a likely source of pelvic pain. No followup ultrasound required. Dictated by: Jose J Brown M.D. on 01/18/2019 at 8:48 Approved by: Jose J Brown M.D. on 01/18/2019 at 8:58
== END ==
PROVIDERS: PCP Family Medicine; Visit Provider Registered Nurse
DX: R10.2 Pelvic and perineal pain (principal); N83.201 Unspecified ovarian cyst, right side; Z30.431 Encounter for routine checking of intrauterine contraceptive device
CPT/HCPCS: 76830; 76856

== ENCOUNTER → 2019-02-08 15:48 | Outpatient (CLI) | payer OTHER, MEDICAID, SELFPAY | PROVIDERS: PCP Family Medicine; Visit Provider Family Medicine | DX: N89.8 Other specified noninflammatory disorders of vagina (principal) | CPT/HCPCS: 87210 ==